=== PATIENT | female | born 1950 | race Caucasian/White ===

== ENCOUNTER 2018-04-21 08:43 | Day surgery (SDC) | payer MEDICARE, OTHER ==
[~2018-04-21] VITALS: Ht 162.6 cm; Wt 70.0 kg
[2018-04-21] MEDS ORDERED: ATOR10 PO (09:17)
[2018-04-21] MEDS ORDERED: GABA400 PO (09:17)
[2018-04-21] MEDS ORDERED: BENADRYL25 MG PO (09:18)
== END 2018-04-21 12:43 | disposition home or self-care (01) ==
LOC: ORSCSDS 08:43
PROVIDERS: Orthopaedic Surgery
PROC: 0SBD4ZZ Excision of Left Knee Joint, Percutaneous Endoscopic Approach (ICD-10-PCS; principal; 2018-04-21 10:00)
DX: S83.242A Other tear of medial meniscus, current injury, left knee, initial encounter (principal); S83.282A Other tear of lateral meniscus, current injury, left knee, initial encounter; E78.00 Pure hypercholesterolemia, unspecified; Z79.899 Other long term (current) drug therapy; Z87.891 Personal history of nicotine dependence
CPT/HCPCS: J0171; J0690; J1100; J1885; J2250; J2405; J3010; J7120

== ENCOUNTER 2022-02-05 08:44 | Day surgery (SDC) | payer MEDICARE, OTHER ==
[~2022-02-05] VITALS: Ht 160 cm; Wt 70.2 kg
[~2022-02-05 08:44] MED LIST: ATOR10 PO; BENADRYL25 MG PO; GABA400 PO
--- NOTE | 2022-02-05 11:14 | NUR ---
02/05/22 1114 Ora Shankar 10CC OF 0.5%MARCAINE WITH EPI 1:200,000 INJECTED. EPI VERIFIED AND MIXED IN OR.
== END 2022-02-05 11:48 | disposition home or self-care (01) ==
LOC: ORSCSDS 08:44
PROVIDERS: Orthopaedic Surgery
PROC: 0SBD4ZZ Excision of Left Knee Joint, Percutaneous Endoscopic Approach (ICD-10-PCS; principal; 2022-02-05 10:00)
DX: S83.282A Other tear of lateral meniscus, current injury, left knee, initial encounter (principal); M17.12 Unilateral primary osteoarthritis, left knee; Z87.891 Personal history of nicotine dependence; E78.5 Hyperlipidemia, unspecified; Z79.899 Other long term (current) drug therapy
CPT/HCPCS: J0171; J0690; J1100; J1885; J2405; J2704; J3010; J7120